=== PATIENT | male | born 1960 | race Caucasian/White ===

== ENCOUNTER 2017-05-02 10:16 | Emergency (ER) | payer OTHER ==
[~2017-05-02 10:16] MED LIST: AMOX500C3 PO; ASPCH81 PO; CALCIUM + D600 M1 PO; FLUO0.25 OPB; FLUT0.0529 NAE; GABA-113 PO; GLC/500 PO; GLIM1TAB PO; IBUP-1050 PO; LENA10CA OR; LEVO200T PO; LOSA1TAB PO; MULT-506 PO; PANT1TAB48 PO; SALI0.6510 NAE; TAMS0.4C59 PO; TMPOPS15 OPB; VALA500T60 PO
[2017-05-02 10:22] VITALS: TEMP 36.8; Ht 172.7 cm
[2017-05-02] MEDS ORDERED: GLIM4TAB2 PO (10:34)
[2017-05-02] MEDS ORDERED: LEVO50TA PO (10:34)
[2017-05-02] MEDS ORDERED: REPA1TAB8 PO (10:34)
[2017-05-02] MEDS ORDERED: REPA1TAB42 PO (10:34)
[2017-05-02] MEDS ORDERED: TRAM-10 PO (10:34)
[2017-05-02] MEDS ORDERED: TAMS0.4C38 PO (10:34)
[2017-05-02] MEDS ORDERED: LENA10CA3 PO (10:37)
[2017-05-02] MEDS ORDERED: ASPI81TA28 PO (10:37)
[2017-05-02 11:19] LABS: BASO % 0.9 %; BASO ABS # 0.04 K/uL (0-0.2); COMPLETE YES; HEMATOCRIT 36.8 % (42-52); IG% 0.4 %; LYMPH % 22.7 %; LYMPH ABS # 1.06 K/uL (1.2-3.4); MEAN CELL VOLUME 93.9 fL (80-100); MEAN CORPUSCULAR HEMOGLOBIN 32.4 pg (25-34); MEAN CORPUSCULAR HGB CONC 34.5 g/dl (32-36); MEAN PLATELET VOLUME 9.2 fL (7.4-10.4); MONO % 10.3 %; NEUT % 59.7 %; PLATELET COUNT 204 K/uL (130-400); RED BLOOD COUNT 3.92 M/uL (4.7-6.1); WHITE BLOOD COUNT 4.66 K/uL (4.8-10.8)
[2017-05-02] MEDS ORDERED: SODIUM CHLORIDE 0.9% 1000ML 1,000 ML IV STA (11:22)
--- NOTE | 2017-05-02 11:25 | EMERGENCY ROOM VISIT NOTE ---
History Report prepared by Vick: [address] Under the Supervision of: Dr. Angelica Mota D.O. First contact with patient: 11:10 Chief Complaint: DIZZY Stated Complaint: IRREGULAR HEARTBEAT Nursing Triage Summary: Dizzy that began this morning. History of Present Illness The patient is a 56 year old male who presents to the Emergency Room with complaints of episodes of dizziness beginning this morning. The patient states that he woke up this morning with an irregular heartbeat. He states he did not feel like his normal self. He then became dizzy and felt off balance. This was followed by lightheadedness. He denies having a syncopal episode. The patient would lie down and rest and his symptoms would then be resolved. The patient states that he was still laying in bed when the symptoms first began. He notes a recent change to the medications he is taking. The patient is experiencing increased urinary frequency today but states he has been drinking extra water. Pt denies headache, change in vision, fevers, chest pain, shortness of breath, diaphoresis, nausea, vomiting, diarrhea, pain with urination, and melena. Source of History: patient Onset: this morning Position: other (global) Quality: other (dizziness) Timing: other (episode) Associated Symptoms: + urinary symptoms (increase frequency) Note: The patient is feeling off balanced and lightheadedness. Review of Systems See HPI for pertinent positives & negatives. A total of 10 systems reviewed and were otherwise negative. Past Medical & Surgical Medical Problems: (1) Diabetes (2) Multiple myeloma in remission Surgical Problems: (1) H/O stem cell transplant Family History Diabetes mellitus FHx: cancer Social History Smoking Status: Never Smoker Smokeless Tobacco Use: No Alcohol Use: none Marital Status: single Housing Status: lives alone Occupation Status: disabled Current/Historical Medications Scheduled , 600 MG PO BID Amoxicillin (Amoxil), 2,000 MG PO UD Aspirin (Aspirin Ec), 81 MG PO DAILY Fluorometholone (Ophth) (Fml Forte 0.25% Oph), 1 DROP OPB BID Gabapentin (Neurontin), 300 MG PO BID Glimepiride (Glimepiride), 4 MG PO QAM Lenalidomide (Revlimid), 10 MG PO QPM Levothyroxine Sodium (Synthroid), 200 MCG PO DAILY Levothyroxine Sodium (Synthroid), 50 MCG PO DAILY Losartan Potassium (Cozaar), 25 MG PO DAILY Metformin Hcl (Glucophage), 500 MG PO BIDM Multivitamin (Multivitamin), 1 TAB PO DAILY Pantoprazole (Protonix), 40 MG PO DAILY Repaglinide (Repaglinide), 1 MG PO QAM Repaglinide (Prandin), 3 MG PO DAILYBD Saline ([place] Nasal [place]), 2 SPRAYS DERRICK PRN Tamsulosin Hcl (Flomax), 0.4 MG PO QPM Timolol Maleate (Timolol 0.5% Oph Soln 15 Ml), 1 DROP OPB BID Valacyclovir (Valtrex), 1,000 MG PO DAILY Scheduled PRN Tramadol (Ultram), 50 MG PO Q6H PRN for Pain Allergies Coded Allergies: No Known Allergies (Verified , NONE, 05/02/17) Physical Exam Vital Signs Date Time Temp Pulse Resp B/P (MAP) Pulse Ox O2 Delivery O2 Flow Rate FiO2 05/02/17 16:00 61 20 116/75 95 Room Air 05/02/17 14:35 48 16 110/65 96 Room Air 05/02/17 13:25 54 16 116/73 95 Room Air 05/02/17 13:11 62 05/02/17 12:20 58 16 125/71 98 76 134/88 73 112/77 05/02/17 11:41 77 16 127/70 98 Room Air 05/02/17 10:27 73 05/02/17 10:22 36.8 72 20 150/74 98 Room Air Physical Exam GENERAL: alert, well appearing, well nourished, no distress, non-toxic EYE EXAM: normal conjunctiva, PERRL and EOM's grossly intact no nystagmus OROPHARYNX: no exudate, no erythema, lips, buccal mucosa, and tongue normal and mucous membranes are moist NECK: supple, no nuchal rigidity, no adenopathy, non-tender LUNGS: Clear to auscultation. Normal chest wall mechanics HEART: no murmurs, S1 normal and S2 normal ABDOMEN: abdomen soft, non-tender, normo-active bowel sounds, no masses, no rebound or guarding. BACK: Back is symmetrical on inspection and there is no deformity, no midline tenderness, no CVA tenderness. SKIN: no rashes and no bruising UPPER EXTREMITIES: upper extremities are grossly normal. LOWER EXTREMITIES: No pitting edema. NEURO EXAM: Normal sensorium, cranial nerves II-XII grossly intact, normal speech, no gross weakness of arms, no gross weakness of legs. Medical Decision & Procedures ER Provider Diagnostic Interpretation: Radiology results have been interpreted by the radiologist and reviewed by me. CT SCAN OF THE BRAIN WITHOUT IV CONTRAST CLINICAL HISTORY: Dizziness. Near syncope. COMPARISON STUDY: No priors. TECHNIQUE: Unenhanced axial CT scan of the brain is performed from the vertex to the skull base. CT DOSE: 614.27 mGy.cm FINDINGS: Brain parenchyma: There are age-related involutional changes noting moderate patchy subcortical and periventricular microangiopathic change. There is no hemorrhage, mass effect, or evidence of acute territorial ischemia by CT criteria. Soliz-white matter is preserved. No extra-axial fluid collection is seen. Ventricles, sulci, cisterns: Prominent secondary to involutional change. Intracranial vasculature: There is atherosclerotic calcification of the cavernous carotid and vertebral arteries. Calvarium: Unremarkable. Sinuses and mastoids: The visualized paranasal sinuses are clear. The mastoid air cells are well pneumatized. Orbits: The bony orbits are grossly intact. There are bilateral ocular lens implants. IMPRESSION: There is no hemorrhage, mass effect, or evidence of acute territorial ischemia by CT criteria. Electronically signed by: José Antonio Mullins M.D. 05/02/2017 12:07 PM Dictated Date/Time: 05/02/2017 12:04 PM SINGLE VIEW CHEST CLINICAL HISTORY: Atypical chest pain. FINDINGS: An AP, portable, upright chest radiograph is compared to study dated 02/11/2009. The examination is degraded by portable technique , apical lordotic positioning, and patient rotation. The heart is top normal for projection and there is atherosclerotic calcification of the thoracic aorta. The pulmonary vascular structures noncongested. Chronic interstitial thickening is similar to previous. No airspace consolidation, large pleural effusion, or pneumothorax is seen. The bony thorax is grossly intact. Degenerative change is noted in the thoracic spine. IMPRESSION: No acute cardiopulmonary abnormality. Electronically signed by: José Antonio Mullins M.D. 05/02/2017 11:55 AM Dictated Date/Time: 05/02/2017 11:54 AM Laboratory Results 05/02/17 10:25 Red Blood Count 3.92, Mean Corpuscular Volume 93.9, Mean Corpuscular Hemoglobin 32.4, Mean Corpuscular Hemoglobin Concent 34.5, Mean Platelet Volume 9.2, Neutrophils (%) (Auto) 59.7, Lymphocytes (%) (Auto) 22.7, Monocytes (%) (Auto) 10.3, Eosinophils (%) (Auto) 6.0, Basophils (%) (Auto) 0.9, Neutrophils # (Auto ) 2.78, Lymphocytes # (Auto) 1.06, Monocytes # (Auto) 0.48, Eosinophils # (Auto ) 0.28, Basophils # (Auto) 0.04 05/02/17 10:25 Test 05/02/17 10:25 05/02/17 11:35 05/02/17 13:34 White Blood Count 4.66 K/uL (4.8-10.8) Red Blood Count 3.92 M/uL (4.7-6.1) Hemoglobin 12.7 g/dL (14.0-18.0) Hematocrit 36.8 % (42-52) Mean Corpuscular Volume 93.9 fL (80-100) Mean Corpuscular Hemoglobin 32.4 pg (25-34) Mean Corpuscular Hemoglobin Concent 34.5 g/dl (32-36) Platelet Count 204 K/uL (130-400) Mean Platelet Volume 9.2 fL (7.4-10.4) Neutrophils (%) (Auto) 59.7 % Lymphocytes (%) (Auto) 22.7 % Monocytes (%) (Auto) 10.3 % Eosinophils (%) (Auto) 6.0 % Basophils (%) (Auto) 0.9 % Neutrophils # (Auto) 2.78 K/uL (1.4-6.5) Lymphocytes # (Auto) 1.06 K/uL (1.2-3.4) Monocytes # (Auto) 0.48 K/uL (0.11-0.59) Eosinophils # (Auto) 0.28 K/uL (0-0.5) Basophils # (Auto) 0.04 K/uL (0-0.2) RDW Standard Deviation 45.9 fL (36.4-46.3) RDW Coefficient of Variation 13.3 % (11.5-14.5) Immature Granulocyte % (Auto) 0.4 % Immature Granulocyte # (Auto) 0.02 K/uL (0.00-0.02) Anion Gap 10.0 mmol/L (3-11) Estimated GFR () 113.2 Estimated GFR (Non- 97.7 BUN/Creatinine Ratio 10.2 (10-20) Calcium Level 8.0 mg/dl (8.5-10.1) Magnesium Level 1.7 mg/dl (1.8-2.4) Total Bilirubin 0.3 mg/dl (0.2-1) Aspartate Amino Transf (AST/SGOT) 22 U/L (15-37) Alanine Aminotransferase (ALT/SGPT) 38 U/L (12-78) Alkaline Phosphatase 63 U/L (45-117) Total Protein 7.3 gm/dl (6.4-8.2) Albumin 3.0 gm/dl (3.4-5.0) Globulin 4.3 gm/dl (2.5-4.0) Albumin/Globulin Ratio 0.7 (0.9-2) Thyroid Stimulating Hormone (TSH) 14.100 uIu/ml (0.300-4.500) Urine Color YELLOW Urine Appearance CLEAR (CLEAR) Urine pH 7.0 (4.5-7.5) Urine Specific [place] 1.008 (1.000-1.030) Urine Protein NEG (NEG) Urine Glucose (UA) NEG (NEG) Urine Ketones NEG (NEG) Urine Occult Blood NEG (NEG) Urine Nitrite NEG (NEG) Urine Bilirubin NEG (NEG) Urine Urobilinogen NEG (NEG) Urine Leukocyte Esterase NEG (NEG) Troponin I < 0.015 ng/ml (0-0.045) Laboratory results per my review. Medications Administered Medications (Trade) Dose Ordered Sig/[place] Route Start Time Stop Time Status Last Admin Dose Admin Sodium Chloride 1,000 ml @ 999 mls/hr Q1H1M STAT IV 05/02/17 11:22 05/02/17 12:22 DC 05/02/17 12:31 999 MLS/HR Magnesium Sulfate (Magnesium Sulfate) 1 gm NOW STAT IV 05/02/17 13:21 05/02/17 13:23 DC 05/02/17 13:55 1 GM ECG Indication: other (dizziness) Rate (beats per minute): 59 Rhythm: sinus bradycardia Findings: no acute ischemic change, no ectopy, other (normal interval, normal axis) ED Course 1110: The patient was evaluated in room A2. A complete history and physical exam was performed. 1122: Sodium Chloride 1,000 ml @ 999 mls/hr IV. 1306: I reevaluated the patient. He states that he has no recurrence of his symptoms. I updated him on his test results. A repeat troponin will be done. 1321: Magnesium Sulfate 1 gm IV. 1535: Significant delay in disposition due to blood drawn lost. Many phone calls have been made. Blood drawn has been found. Troponin results should be done soon. 1600: Upon reevaluation, the patient is feeling better. I discussed the findings and the treatment plan with the patient. He verbalizes agreement and understanding. He was discharged home. Medical Decision The patient is a 56 year old male who presents to the ED with complaints of dizziness. Differential diagnosis: Etiologies such as benign positional vertigo, dehydration, hypovolemia, anemia, tumor, infection, hypoglycemia, electrolyte abnormalities, cardiac sources, intracerebral event, toxicologic, neurologic, as well as others were entertained. Medication Reconciliation: I attest that I have personally reviewed the patient' s current medication list. Blood pressure screening: Patient was found to have a slightly elevated blood pressure due to circumstances. I do not believe that the patient requires hypertension monitoring. Patient with orthostatic symptoms reproducible on bedside testing. Patient with a normal nonfocal neurologic exam. Patient's labs and imaging otherwise reassuring. Patient monitored for several hours as a precaution and was given IV fluids. Patient had no recurrence of any symptoms following the IV fluids. Patient's magnesium was repleted. Patient with history of thyroid dysfunction and this was discussed with patient at bedside for follow-up also. Discussed with patient close follow-up with family doctor, symptoms to watch and return for, possible differential diagnosis, he verbalized understanding was agreeable with plan. Patient tolerating by mouth and ambulating with a steady gait at time of discharge. Doubt CVA, ACS, dissection, PE, infectious etiology, central venous sinus thrombus, no evidence of electrolyte abnormality or renal dysfunction and magnesium level was repleted. Doubt cerebellar infarct/mass/bleed. Doubt posterior circulation issue. Troponins negative 2 and patient low risk for cardiac event. Heart score 2, patient also mentions that he recently started tramadol, discussed with him this could be an adverse reaction to his use of tramadol also. Discussed adequate hydration and discussion with family doctor regarding medications. Impression Primary Impression: Dizziness Scribe Attestation The scribe's documentation has been prepared under my direction and personally reviewed by me in its entirety. I confirm that the note above accurately reflects all work, treatment, procedures, and medical decision making performed by me. Departure Information Dispostion Home / Self-Care Referrals Gerry Slater MD (PCP) Forms HOME CARE DOCUMENTATION FORM, IMPORTANT VISIT INFORMATION Patient Instructions My [facility] Additional Instructions Please continue regular medications as prescribed. Please follow up with your family doctor. Please have asked them to recheck your thyroid number as your TSH was elevated today. If you develop any recurrent dizziness, develop chest pain, palpitations, trouble breathing, vomiting, fevers, feel as though you're going to faint, or you've any other new concerns, please return the emergency room.
[2017-05-02 11:31] LABS: ALT/SGPT 38 U/L (12-78); AST/SGOT 22 U/L (15-37); BLOOD UREA NITROGEN 8 mg/dl (7-18); BUN/CREATININE RATIO 10.2 (10-20); CARBON DIOXIDE 25 mmol/L (21-32); CHLORIDE 104 mmol/L (98-107); CREATININE 0.83 mg/dl (0.60-1.40); GLUCOSE 143 mg/dl (70-99); POTASSIUM 3.6 mmol/L (3.5-5.1); SODIUM 139 mmol/L (136-145)
[2017-05-02 11:33] LABS: ALB/GLOB RATIO 0.7 (0.9-2); ALKALINE PHOSPHATASE 63 U/L (45-117)
[2017-05-02 11:55] LABS: MAGNESIUM 1.7 mg/dl (1.8-2.4)
--- NOTE | 2017-05-02 11:56 | DIAGNOSTIC IMAGING REPORT ---
SINGLE VIEW CHEST CLINICAL HISTORY: Atypical chest pain. FINDINGS: An AP, portable, upright chest radiograph is compared to study dated 02/11/2009. The examination is degraded by portable technique , apical lordotic positioning, and patient rotation. The heart is top normal for projection and there is atherosclerotic calcification of the thoracic aorta. The pulmonary vascular structures noncongested. Chronic interstitial thickening is similar to previous. No airspace consolidation, large pleural effusion, or pneumothorax is seen. The bony thorax is grossly intact. Degenerative change is noted in the thoracic spine. IMPRESSION: No acute cardiopulmonary abnormality. Electronically signed by: José Antonio Mullins M.D. 05/02/2017 11:55 AM Dictated Date/Time: 05/02/2017 11:54 AM
[2017-05-02 11:59] LABS: URINE APPEARANCE CLEAR (CLEAR); URINE BILIRUBIN NEG (NEG); URINE COLOR YELLOW; URINE NITRITE NEG (NEG); URINE SPECIFIC GRAVITY 1.008 (1.000-1.030); UROBILINOGEN NEG (NEG); ZZUR CULT IF INDIC CLEAN CATCH NO
[2017-05-02 12:08] LABS: MANUAL MICROSCOPIC REQUIRED? NO; REVIEW REQ? NO
--- NOTE | 2017-05-02 12:08 | DIAGNOSTIC IMAGING REPORT ---
CT SCAN OF THE BRAIN WITHOUT IV CONTRAST CLINICAL HISTORY: Dizziness. Near syncope. COMPARISON STUDY: No priors. TECHNIQUE: Unenhanced axial CT scan of the brain is performed from the vertex to the skull base. CT DOSE: 614.27 mGy.cm FINDINGS: Brain parenchyma: There are age-related involutional changes noting moderate patchy subcortical and periventricular microangiopathic change. There is no hemorrhage, mass effect, or evidence of acute territorial ischemia by CT criteria. Soliz-white matter is preserved. No extra-axial fluid collection is seen. Ventricles, sulci, cisterns: Prominent secondary to involutional change. Intracranial vasculature: There is atherosclerotic calcification of the cavernous carotid and vertebral arteries. Calvarium: Unremarkable. Sinuses and mastoids: The visualized paranasal sinuses are clear. The mastoid air cells are well pneumatized. Orbits: The bony orbits are grossly intact. There are bilateral ocular lens implants. IMPRESSION: There is no hemorrhage, mass effect, or evidence of acute territorial ischemia by CT criteria. Electronically signed by: José Antonio Mullins M.D. 05/02/2017 12:07 PM Dictated Date/Time: 05/02/2017 12:04 PM
[2017-05-02] MEDS ORDERED: MAGNESIUM SULFATE 1GM / D5W 1 GM BAG IV STA (13:21)
[2017-05-02 16:00] VITALS: BP 116/75; PULSE 61; O2SAT 95
== END 2017-05-02 16:14 | disposition home or self-care (01) ==
LOC: EDBD 10:16 → C.EDA 10:17
DX: R42 Dizziness and giddiness (principal); E11.9 Type 2 diabetes mellitus without complications; Z85.89 Personal history of malignant neoplasm of other organs and systems; Z83.3 Family history of diabetes mellitus; Z80.9 Family history of malignant neoplasm, unspecified; Z79.82 Long term (current) use of aspirin; Z79.899 Other long term (current) drug therapy